=== PATIENT | female | born 1995 | race Two or more races ===

== ENCOUNTER 2023-11-19 19:44 | Inpatient (IN) | payer OTHER ==
[~2023-11-19] VITALS: Ht 160 cm; Wt 97.1 kg
[2023-11-19] MEDS ORDERED: PANTOPRAZOLE SODIUM 40 MG/VIAL VIAL IV SCH (20:28)
[2023-11-19] MEDS ORDERED: RINGERS SOLUTION,LACTATED 1,000 ML IV SCH (20:30)
[2023-11-19 21:03] LABS: HEMATOCRIT 31.6 % (36.0-45.00); HEMOGLOBIN 10.6 g/dL (12.0-15.00); MEAN CELL VOLUME 87.7 fL (80.00-100.00); MEAN CORPUSCULAR HEMOGLOBIN 29.5 pg (27.00-32.0); MEAN CORPUSCULAR HGB CONC 33.6 g/dl (32.0-36.0); PLATELET COUNT 343 K/uL (150-450); RED CELL DISTRIBUTION WIDTH 13.6 % (11.5-14.5)
[2023-11-19] MEDS ORDERED: PRENATAL + DHA1 EAC1 PO (21:17)
[2023-11-19] MEDS ORDERED: SYNTHROID75 MCG PO (21:17)
[2023-11-19 21:19] LABS: INR < 0.93; PARTIAL THROMBOPLASTIN TIME 23.4 SECONDS (22.0-34.0); PROTHROMBIN TIME 9.6 SECONDS (9.0-11.5)
[2023-11-19 21:24] LABS: ALBUMIN 2.9 gm/dL (3.4-5.0); BILIRUBIN TOTAL 0.28 mg/dL (0.3-1.2); CREATININE SERUM 0.59 mg/dL (0.55-1.02); GFR 120.5; GLOBULINA 3.8 G/DL (2.4-3.5); POTASSIUM 3.83 mEq/L (3.5-5.1); TOTAL PROTEIN 6.7 gm/dL (6.4-8.2)
[2023-11-19] MEDS ORDERED: MORPHINE SULFATE 4 MG/ML VIAL IV STA (22:48)
== END 2023-11-20 19:01 | disposition home or self-care (01) | DRG 833 ==
LOC: LDR 19:44
PROVIDERS: ADMIT Obstetrics & Gynecology Maternal & Fetal Medicine; ATTEND Obstetrics & Gynecology Maternal & Fetal Medicine
PROC: 4A1HXCZ Monitoring of Products of Conception, Cardiac Rate, External Approach (ICD-10-PCS; principal; 2023-11-19)
PROC: BW40ZZZ Ultrasonography of Abdomen (ICD-10-PCS; 2023-11-20)
DX: O26.893 Other specified pregnancy related conditions, third trimester (principal); R10.11 Right upper quadrant pain; Z3A.33 33 weeks gestation of pregnancy; Z20.822 Contact with and (suspected) exposure to COVID-19; O21.8 Other vomiting complicating pregnancy

== ENCOUNTER 2023-12-29 07:37 | Outpatient (CLI) | payer OTHER ==
[~2023-12-29 07:37] MED LIST: PRENATAL + DHA1 EAC1 PO; SYNTHROID75 MCG PO
== END 2023-12-29 08:40 | disposition home or self-care (01) ==
LOC: NST 07:37
PROVIDERS: ATTEND Obstetrics & Gynecology
DX: Z34.83 Encounter for supervision of other normal pregnancy, third trimester (principal)

== ENCOUNTER 2024-01-01 10:51 | Outpatient (CLI) | payer OTHER | END 2024-01-01 11:31 | disposition home or self-care (01) | LOC: NST 10:51 | PROVIDERS: ATTEND Obstetrics & Gynecology | DX: Z34.83 Encounter for supervision of other normal pregnancy, third trimester (principal) ==

== ENCOUNTER 2024-01-01 12:16 | Inpatient (IN) | payer OTHER ==
[~2024-01-01] VITALS: Ht 160 cm; Wt 3.2 kg
[2024-01-03] MEDS ORDERED: AMPICILLIN SODIUM 2,000 MG VIAL ONE (05:53)
[2024-01-03] MEDS ORDERED: RINGERS SOLUTION,LACTATED 1,000 ML IV SCH (07:15)
[2024-01-03] MEDS ORDERED: AMPICILLIN SODIUM 2,000 MG VIAL IV ONE (07:15)
[2024-01-03] MEDS ORDERED: OXYTOCIN 20 UNITS/500ML RL PIGGYBAG IV ONE (07:36)
[2024-01-03 07:48] LABS: HEMATOCRIT 30.1 % (36.0-45.00); MEAN CELL VOLUME 81.5 fL (80.00-100.00); MEAN CORPUSCULAR HEMOGLOBIN 26.4 pg (27.00-32.0); MEAN CORPUSCULAR HGB CONC 32.4 g/dl (32.0-36.0); PLATELET COUNT 298 K/uL (150-450)
[2024-01-03 07:54] LABS: HEMOGLOBIN 9.8 g/dL (12.0-15.00); INR < 0.93
[2024-01-03 07:57] LABS: PROTHROMBIN TIME 9.4 SECONDS (9.0-11.5)
[2024-01-03 07:58] LABS: ALBUMIN 2.7 gm/dL (3.4-5.0); BILIRUBIN TOTAL 0.27 mg/dL (0.3-1.2); CALCIUM 9.5 mg/dL (8.5-10.1); CREATININE SERUM 0.69 mg/dL (0.55-1.02); GFR 100.59; GLOBULINA 3.7 G/DL (2.4-3.5); POTASSIUM 4.02 mEq/L (3.5-5.1); TOTAL PROTEIN 6.4 gm/dL (6.4-8.2)
[2024-01-03] MEDS ORDERED: LEVOTHYROXINE SODIUM 75 MCG TABLET PO SCH (09:09)
[2024-01-03] MEDS ORDERED: OXYTOCIN 500 ML IV ONE (09:15)
[2024-01-03] MEDS ORDERED: AMPICILLIN SODIUM 1,000 MG VIAL IV SCH (12:00)
[2024-01-03] MEDS ORDERED: MORPHINE SULFATE 4 MG/ML VIAL IV PRN (14:15)
[2024-01-03] MEDS ORDERED: CEFAZOLIN SODIUM 1,000 MG VIAL ONE ×2 (20:12→22:40)
[2024-01-03] MEDS ORDERED: ERYTHROMYCIN BASE 1 GM TUBE OP ONE (20:15)
[2024-01-03] MEDS ORDERED: OXYTOCIN 10 UNITS/ML VIAL IV ONE ×2 (20:15→22:00)
[2024-01-03] MEDS ORDERED: ERYTHROMYCIN BASE 3.5 GM OINT...G. OP ONE (20:17)
[2024-01-03] MEDS ORDERED: OXYTOCIN 10 UNITS/ML VIAL ONE (20:17)
[2024-01-03] MEDS ORDERED: KETOROLAC TROMETHAMINE 30 MG VIAL IV SCH (20:37)
[2024-01-03] MEDS ORDERED: MORPHINE SULFATE 4 MG/ML VIAL IV SCH (21:00)
[2024-01-04] MEDS ORDERED: AMPICILLIN SODIUM 1,000 MG VIAL ONE (01:14)
[2024-01-04 06:59] LABS: HEMATOCRIT 24.1 % (36.0-45.00); PLATELET COUNT 233 K/uL (150-450); RED CELL DISTRIBUTION WIDTH 16.1 % (11.5-14.5)
[2024-01-04 07:00] LABS: MEAN CELL VOLUME 80.4 fL (80.00-100.00); MEAN CORPUSCULAR HEMOGLOBIN 26.6 pg (27.00-32.0)
[2024-01-04] MEDS ORDERED: DOCUSATE SODIUM 100MG CAP PO SCH (09:00)
[2024-01-04] MEDS ORDERED: GABAPENTIN 300 MG CAPSULE PO SCH (09:00)
[2024-01-04] MEDS ORDERED: SIMETHICONE 125 MG CAPSULE PO SCH (09:00)
[2024-01-04] MEDS ORDERED: SOD FERRIC GLUC COMPLX/SUCROSE 125 MG in 0.9 % SODIUM CHLORIDE 100 ML IV SCH (09:00)
[2024-01-04] MEDS ORDERED: PNV,CALCIUM 72/IRON/FOLIC ACID 1 TAB TABLET PO SCH (09:00)
[2024-01-04] MEDS ORDERED: IBUprofen 600 MG TABLET PO SCH (12:00)
[2024-01-04] MEDS ORDERED: ACETAMINOPHEN 500 MG GEL..CAP PO SCH (12:00)
[2024-01-05] MEDS ORDERED: IRON FUM,PS/FOLIC/BCOMP,C NO.9 1 CAP CAPSULE PO SCH (09:00)
[2024-01-05] MEDS ORDERED: SOD FERRIC GLUC COMPLX/SUCROSE 62.5 MG/5 ML AMPUL IV ONE (09:15)
== END 2024-01-05 16:39 | disposition home or self-care (01) | DRG 788 ==
LOC: OB/GYN 12:16 → LDR 01-03 04:47 → O/R 01-03 20:54 → OB/GYN 01-03 22:07
PROVIDERS: Obstetrics & Gynecology Gynecology; ADMIT Obstetrics & Gynecology Maternal & Fetal Medicine; ATTEND Obstetrics & Gynecology Maternal & Fetal Medicine
PROC: 4A1HXCZ Monitoring of Products of Conception, Cardiac Rate, External Approach (ICD-10-PCS; 2024-01-03)
PROC: 10D00Z1 Extraction of Products of Conception, Low, Open Approach (ICD-10-PCS; principal; 2024-01-03 20:00)
DX: O82 Encounter for cesarean delivery without indication (principal); O62.1 Secondary uterine inertia; O99.824 Streptococcus B carrier state complicating childbirth; Z3A.40 40 weeks gestation of pregnancy; Z37.0 Single live birth; Z20.822 Contact with and (suspected) exposure to COVID-19